=== PATIENT | male | born 1955 | race Caucasian/White ===

== ENCOUNTER → 2019-07-13 07:45 | Outpatient (CLI) | payer OTHER, SELFPAY ==
[2019-07-13 08:42] LABS: Cholesterol 191 mg/dL (140-199); HDL Cholesterol 35 mg/dL (40-60); LDL Cholesterol Calculated 122 mg/dL (<100); Triglycerides 172 mg/dL (35-150)
== END ==
PROVIDERS: Family Provider Family Medicine; PCP Family Medicine; Visit Provider Internal Medicine Cardiovascular Disease
DX: I25.10 Atherosclerotic heart disease of native coronary artery without angina pectoris (principal)
CPT/HCPCS: 36415; 80061

== ENCOUNTER → 2019-08-31 09:34 | Outpatient (CLI) | payer OTHER, SELFPAY ==
[2019-08-31 11:40] LABS: BUN Creatinine Ratio 28.3 (6-22); Blood Urea Nitrogen 17 mg/dL (9-20); Calcium 8.7 mg/dL (8.4-10.2); Carbon Dioxide 26 mmol/L (22-32); Chloride 107 mmol/L (98-107); Cholesterol 126 mg/dL (140-199); Estimated Glomerular Filt Rate > 60.0 mL/min (>60); Glucose 104 mg/dL (80-110); HDL Cholesterol 30 mg/dL (40-60); HEMOLYSIS < 15 (0-50); LDL Cholesterol Calculated 67 mg/dL (<100); Potassium 4.5 mmol/L (3.4-5.1); Sodium 139 mmol/L (137-145); Triglycerides 144 mg/dL (35-150)
== END ==
PROVIDERS: Family Provider Family Medicine; PCP Family Medicine; Referring Provider Internal Medicine Cardiovascular Disease; Visit Provider Internal Medicine Cardiovascular Disease
DX: I25.118 Atherosclerotic heart disease of native coronary artery with other forms of angina pectoris (principal); E78.00 Pure hypercholesterolemia, unspecified
CPT/HCPCS: 36415; 80048; 80061

== ENCOUNTER 2020-02-15 11:44 | Emergency (ER) | payer OTHER, SELFPAY ==
[2020-02-15] VITALS (17 sets, daily range): BP systolic 133–168; BP diastolic 63–110; PULSE 66–137; RESP 18–37; TEMP 36.8; O2SAT 91–99; BMI 34.7
--- NOTE | 2020-02-15 12:01 | DI.RAD.S_ITS ---
PROCEDURE: XR CHEST 2V INDICATIONS: shortness of breath TECHNIQUE: 2 views of the chest were acquired. COMPARISON: None. FINDINGS: Surgical changes and devices: Extensive thoracic spine fixation hardware is seen.. Lungs and pleura: There is pulmonary vascular congestion. Small to moderate right pleural effusion is noted with right lower lung field atelectasis. No gross pneumothorax. Mild pulmonary edema is also seen. No pleural effusions or pneumothorax. Mediastinum: Mediastinal contours are normal. Heart size is enlarged. Bones and chest wall: No suspicious bony abnormalities. Soft tissues appear unremarkable. IMPRESSION: Congestive changes and right pleural effusion. No gross pneumothorax. Dictated by: Benjamin Corbin M.D. on 02/15/2020 at 12:34 Approved by: Benjamin Corbin M.D. on 02/15/2020 at 12:38
--- NOTE | 2020-02-15 12:12 | ED_ITS ---
HPI - SOB/Dyspnea General Chief Complaint: Shortness of Breath/Dyspnea Stated Complaint: very SOB, states HR is elevated Time Seen by Provider: 02/15/20 11:59 Source: patient Mode of arrival: Ambulatory Limitations: no limitations History of Present Illness HPI Narrative: The patient is a 54-year-old male who presents with increasing shortness of breath ongoing for the last 36 hours. He says it started suddenly while he was sleeping it is worse with exertion he denies any chest pain or heart fluttering. Says he was really unable to make it to his mailbox this morning without any discomfort and experiencing shortness of breath. He is also having orthopnea at night. He denies any fever cough he is experiencing some diaphoresis now. He said that he checked his heart rate at home was in the 150s is [facility] come [facility]. Also he is worried about COVID-19 and requesting to be test Related Data Previous Rx's Medication Instructions Recorded azithromycin [Zithromax Z-Lars] 250 mg PO QDAY #6 tab 07/07/16 furosemide [Lasix] 20 mg PO DAILY #3 tab 02/15/20 Allergies Allergy/AdvReac Type Severity Reaction Status Date / Time chlorhexidine [CHLORHEXIDINE] Allergy Severe red whelts Verified 02/15/20 12:15 codeine [CODEINE] Allergy Unknown Verified 02/15/20 12:15 Review of Systems Review of Systems Narrative: GENERAL: Denies chills, fatigue, malaise, fever, sweats, travel HEENT: Denies sinus pain, ear pain, sore throat, difficulty swallowing, neck pain RESPIRATORY: Denies dyspnea, cough, wheezing, hemoptysis, sputum. CARDIOVASCULAR: See HPI GASTROINTESTINAL: Denies nausea, vomiting, abdominal pain, diarrhea, constipation, melena. : Denies dysuria, frequency, incontinence, hematuria, urinary retention, flank pain. MUSCULOSKELETAL: Denies weakness, joint pain, or bony pain SKIN: No rash, no erythema, no pruritus NEUROLOGIC: Denies weakness, dizziness, headache, numbness, change in speech, confusion PSYCHIATRIC: No concerning psychosocial issues. 12 point review of systems is negative except for those stated above and HPI Patient History Medical History Hyperlipidemia (Acute) Hypertension (Acute) Social History Smoking Status: Never smoker Exam Initial Vital Signs Initial Vital Signs: Vital Signs Pulse Rate 135 H 02/15/20 11:57 Respiratory Rate 29 H 02/15/20 11:57 Blood Pressure 168/110 H 02/15/20 11:57 Pulse Oximetry 95 02/15/20 11:57 GENERAL: [Well-appearing, well-nourished] and in [no acute] distress. HEENT: Head atraumatic,EOMI, pupils reactive, face symmetric, [moist] mucous membranes CARDIOVASCULAR: Tachycardic regular no murmur RESPIRATORY: Breath sounds equal bilaterally, no wheezes rales or rhonchi. ABDOMEN: Soft, nontender. Normoactive bowel sounds all 4 quadrants. No guarding or rebound. EXTREMITIES: Normal range of motion, no clubbing or edema. Neurovascularly intact NEUROLOGICAL: Alert and oriented x4.Normal gait and speech. SKIN: Warm, dry, no laceration, no petechiae, no rashes or lesions. Procedures Cardioversion Consent Signed: Yes Indication: Atrial flutter with RVR Stability: Stable Number of attempts (shocks): 1 Joules used: 150 Cardiac rhythm post-cardioversion: Normal sinus rhythm Procedural Sedation Consent signed: Yes Time out performed: Yes Indication: cardioversion ASA Class: III Mallampati Airway Classification: Class II Preparation: monitor and storage bin tender applied, pulse oximeter, capnometry used, supp lemental O2 applied, suction/airway equipment at bedside and IV secured IV Propofol dose (mg): 100 Intraservice time/total sedation time (min): 15 ED Sedation Level: Moderate (Concious) Patient Tolerated Procedure: Well Interventions: Airway repositioned and Oxygen applied Scores CHADS-VASc Congestive heart failure: yes Hypertension: yes Age 75 years or older: no Diabetes mellitus: no Stroke, TIA, or TE: no Vascular disease: no Age 65 to 74 years: no Sex category (female): Male CHADS-VASc Score: 2 Course Orders Ordered: ED Orders 02/15/20 12:01 XR chest 2V Stat EKG-12 Lead Stat Measure peak expiratory flow ONCE RT Consult Eval and Treat Now 02/15/20 12:10 Complete Blood Count AUTO DIFF Stat Comprehensive Metabolic Panel Stat D Dimer Stat Lactate (Lactic Acid) Stat Magnesium Stat NT-proBNP (BNP-Adult 18+) Stat Thyroid Stimulating Hormone Stat Troponin & CK Cardiac Panel Stat 02/15/20 12:50 EKG-12 Lead Routine Discontinued Medications Aspirin (Aspirin Chew) 324 mg PO NOW ONE Stop: 02/15/20 14:08 Last Admin: 02/15/20 14:17 Dose: 324 mg Documented by: TED Diltiazem HCl (Cardizem) 10 mg IV NOW ONE Stop: 02/15/20 12:19 Last Admin: 02/15/20 12:21 Dose: 10 mg Documented by: TED Furosemide (Lasix) 40 mg IV NOW ONE Stop: 02/15/20 13:22 Last Admin: 02/15/20 14:13 Dose: 40 mg Documented by: TED Propofol (Diprivan) 130 mg 1 mg/kg (130 mg) IV NOW ONE Stop: 02/15/20 13:09 Last Admin: 02/15/20 14:12 Dose: 100 mg Documented by: TED Vital Signs Vital signs: Vital Signs - 8 hr 02/15/20 11:57 02/15/20 12:00 02/15/20 12:30 Temperature 98.3 F Pulse Rate 135 H 137 H 134 H Respiratory Rate 29 H 37 H 31 H Blood Pressure 168/110 H 168/110 H Pulse Oximetry 95 95 92 02/15/20 12:34 02/15/20 13:00 02/15/20 13:30 Temperature Pulse Rate 100 H 104 H 128 H Respiratory Rate 24 20 26 H Blood Pressure 147/88 H 161/92 H 150/74 H Pulse Oximetry 93 91 91 02/15/20 13:53 02/15/20 13:58 02/15/20 14:00 Temperature Pulse Rate 130 H 136 H 135 H Respiratory Rate 29 H 20 26 H Blood Pressure 149/89 H Pulse Oximetry 91 02/15/20 14:05 02/15/20 14:10 02/15/20 14:15 Temperature Pulse Rate 67 66 Respiratory Rate 22 24 Blood Pressure 146/72 H 144/88 H 135/80 Pulse Oximetry 97 93 02/15/20 14:21 02/15/20 14:26 02/15/20 14:30 Temperature Pulse Rate 67 68 69 Respiratory Rate 22 32 H Blood Pressure 140/63 133/79 Pulse Oximetry 93 94 94 02/15/20 14:31 02/15/20 14:36 Temperature Pulse Rate 67 67 Respiratory Rate 26 H 18 Blood Pressure 136/64 154/85 H Pulse Oximetry 94 94 MDM - SOB/Dyspnea Lab Data Attestation: I reviewed the patient's lab results. Result diagrams: 02/15/20 12:10 02/15/20 12:10 Labs: Lab Results 02/15/20 02/15/20 02/15/20 Range/Units 12:10 12:10 12:10 WBC 9.4 (4.5-11.0) X10^3/uL RBC 4.35 L (4.5-5.9) X10^6/uL Hgb 14.1 (13.5-17.5) g/dL Hct 42.0 (41-53) % MCV 96.7 (80-100) fL MCH 32.4 (26-34) PG MCHC 33.5 (30-36) % RDW 12.9 (11.6-14.8) % Plt Count 218 (150-400) X10^3/uL Neut % (Auto) 74.6 (50-75) % Lymph % (Auto) 16.3 L (25-40) % [place] % (Auto) 7.7 (3-14) % Eos % (Auto) 0.9 L (2-4) % Baso % (Auto) 0.5 (0-2) % Neut # (Auto) 7000 (2493-1063) /uL Lymph # (Auto) 1500 (5146-9836) /uL [place] # (Auto) 700 (0-900) /uL Eos # (Auto) 100 (0-450) /uL Baso # (Auto) 0 (0-100) /uL D-Dimer (<230) ng/mL Sodium 139 (137-145) mmol/L Potassium 4.5 (3.4-5.1) mmol/L Chloride 107 (98-107) mmol/L Carbon Dioxide 27 (22-32) mmol/L BUN 12 (9-20) mg/dL Creatinine 0.60 L (0.66-1.25) mg/dL Estimated GFR > 60.0 (>60) mL/min BUN/Creatinine Ratio 20.0 (6-22) Glucose 112 H (80-110) mg/dL Lactate 0.6 L (0.7-2.1) mmol/L Calcium 8.7 (8.4-10.2) mg/dL Magnesium (1.6-2.3) mg/dL Total Bilirubin 0.6 (0.2-1.3) mg/dL AST 33 (17-59) IU/L ALT 41 (<50) IU/L Alkaline Phosphatase 68 (38-126) U/L Total Creatine Kinase (55-170) U/L CK-MB (CK-2) CK-MB (CK-2) Rel Index Troponin I (0.01-0.034) ng/mL NT-Pro-B Natriuret Pep (<125) pg/mL Total Protein 6.8 (6.3-8.2) g/dL Albumin 4.0 (3.5-5.0) g/dL Globulin 2.8 (1.7-4.1) g/dL Albumin/Globulin Ratio 1.4 (1.0-2.8) TSH (0.47-4.68) uIU/mL 02/15/20 02/15/20 02/15/20 Range/Units 12:10 12:10 12:10 WBC (4.5-11.0) X10^3/uL RBC (4.5-5.9) X10^6/uL Hgb (13.5-17.5) g/dL Hct (41-53) % MCV (80-100) fL MCH (26-34) PG MCHC (30-36) % RDW (11.6-14.8) % Plt Count (150-400) X10^3/uL Neut % (Auto) (50-75) % Lymph % (Auto) (25-40) % [place] % (Auto) (3-14) % Eos % (Auto) (2-4) % Baso % (Auto) (0-2) % Neut # (Auto) (1743-6390) /uL Lymph # (Auto) (0177-1264) /uL [place] # (Auto) (0-900) /uL Eos # (Auto) (0-450) /uL Baso # (Auto) (0-100) /uL D-Dimer 272 H (<230) ng/mL Sodium (137-145) mmol/L Potassium (3.4-5.1) mmol/L Chloride (98-107) mmol/L Carbon Dioxide (22-32) mmol/L BUN (9-20) mg/dL Creatinine (0.66-1.25) mg/dL Estimated GFR (>60) mL/min BUN/Creatinine Ratio (6-22) Glucose (80-110) mg/dL Lactate (0.7-2.1) mmol/L Calcium (8.4-10.2) mg/dL Magnesium 2.0 (1.6-2.3) mg/dL Total Bilirubin (0.2-1.3) mg/dL AST (17-59) IU/L ALT (<50) IU/L Alkaline Phosphatase (38-126) U/L Total Creatine Kinase 54 L (55-170) U/L CK-MB (CK-2) TNP CK-MB (CK-2) Rel Index TNP Troponin I 0.017 (0.01-0.034) ng/mL NT-Pro-B Natriuret Pep (<125) pg/mL Total Protein (6.3-8.2) g/dL Albumin (3.5-5.0) g/dL Globulin (1.7-4.1) g/dL Albumin/Globulin Ratio (1.0-2.8) TSH (0.47-4.68) uIU/mL 02/15/20 02/15/20 Range/Units 12:10 12:10 WBC (4.5-11.0) X10^3/uL RBC (4.5-5.9) X10^6/uL Hgb (13.5-17.5) g/dL Hct (41-53) % MCV (80-100) fL MCH (26-34) PG MCHC (30-36) % RDW (11.6-14.8) % Plt Count (150-400) X10^3/uL Neut % (Auto) (50-75) % Lymph % (Auto) (25-40) % [place] % (Auto) (3-14) % Eos % (Auto) (2-4) % Baso % (Auto) (0-2) % Neut # (Auto) (2693-5395) /uL Lymph # (Auto) (1621-1825) /uL [place] # (Auto) (0-900) /uL Eos # (Auto) (0-450) /uL Baso # (Auto) (0-100) /uL D-Dimer (<230) ng/mL Sodium (137-145) mmol/L Potassium (3.4-5.1) mmol/L Chloride (98-107) mmol/L Carbon Dioxide (22-32) mmol/L BUN (9-20) mg/dL Creatinine (0.66-1.25) mg/dL Estimated GFR (>60) mL/min BUN/Creatinine Ratio (6-22) Glucose (80-110) mg/dL Lactate (0.7-2.1) mmol/L Calcium (8.4-10.2) mg/dL Magnesium (1.6-2.3) mg/dL Total Bilirubin (0.2-1.3) mg/dL AST (17-59) IU/L ALT (<50) IU/L Alkaline Phosphatase (38-126) U/L Total Creatine Kinase (55-170) U/L CK-MB (CK-2) CK-MB (CK-2) Rel Index Troponin I (0.01-0.034) ng/mL NT-Pro-B Natriuret Pep 1590 H (<125) pg/mL Total Protein (6.3-8.2) g/dL Albumin (3.5-5.0) g/dL Globulin (1.7-4.1) g/dL Albumin/Globulin Ratio (1.0-2.8) TSH 1.84 (0.47-4.68) uIU/mL Imaging Data Chest x-ray: Radiologist's Impression: PROCEDURE: XR CHEST 2V INDICATIONS: shortness of breath TECHNIQUE: 2 views of the chest were acquired. COMPARISON: None. FINDINGS: Surgical changes and devices: Extensive thoracic spine fixation hardware is seen.. Lungs and pleura: There is pulmonary vascular congestion. Small to moderate right pleural effusion is noted with right lower lung field atelectasis. No gross pneumothorax. Mild pulmonary edema is also seen. No pleural effusions or pneumothorax. Mediastinum: Mediastinal contours are normal. Heart size is enlarged. Bones and chest wall: No suspicious bony abnormalities. Soft tissues appear unremarkable. IMPRESSION: Congestive changes and right pleural effusion. No gross pneumothorax. Dictated by: Benjamin Corbin M.D. on 02/15/2020 at 12:34 ECG Data Attestation: I personally reviewed and interpreted this ECG as follows: Interpretation: EKG 1. Atrial flutter rate 136 EKG 2. Atrial flutter [address] changes EKG 3. Sinus rhythm rate 66 p.r. interval 176 QRS [address] changes no priors to compare MDM Narrative Medical decision making narrative: The patient is quite certain that this started 36 hours ago because he woke up suddenly with shortness of breath. He has an elevated BNP and a new diagnosis of atrial flutter. I have discussed risks and benefits with him pending regards to cardioversion. The patient is easily cardioverted after 1 shock is in normal sinus rhythm. He states he is feeling overall much better. He is actually followed by Dr. Scherer, cardiology. He is given an aspirin in has a low risk chest score I strongly encouraged him and recommend he talk with Cardiology for outpatient echocardiogram. At this time he is not hypoxic and no need for admission. Discharge Plan Departure Patient Disposition: Home Clinical Impression: Atrial flutter with rapid ventricular response Congestive heart failure Qualifiers: Heart failure type: unspecified Heart failure chronicity: unspecified Qualified Code(s): I50.9 - Heart failure, unspecified Discharge Date/Time: 02/15/20 15:17 Instructions: Heart Failure, Atrial Flutter Activity Restrictions/Additional Instructions: *You have been diagnosed with atrial flutter *What to do: It is imperative that you have further testing including echocardiogram be evaluated by a rn hyperbaric. This can put you at risk for stroke so be sure that he take an aspirin once a day you may require stronger anticoagulation *Continue to take medications as directed Lasix 20 mg once a day for 3 days Continue metoprolol and aspirin and other medications as previously indicated *Follow up with your primary care provider in 2-3 days, call cardiology today to schedule follow-up appointment for the further testing you require *Return to ER if you should have increasing shortness of breath, chest pain heart palpitation or any new, worsening or concerning symptoms Prescriptions: New furosemide [Lasix] 20 mg tablet 20 mg PO DAILY Qty: 3 RF: 0 No Action azithromycin [Zithromax Z-Lars] 250 MG tablet 250 mg PO QDAY Qty: 6 RF: 0 Referrals: Kvng Sibley MD [Primary Care Provider] - Franky Galvez MD [Physician] -
[2020-02-15 12:21] LABS: Add Manual Diff / Slide Review NO; Basophils Absolute Auto 0 /uL (0-100); Basophils Percent Auto 0.5 % (0-2); Eosinophils Absolute Auto 100 /uL (0-450); Eosinophils Percent Auto 0.9 % (2-4); Hemoglobin 14.1 g/dL (13.5-17.5); Lymphocytes Absolute Auto 1500 /uL (1100-4500); Lymphocytes Percent Auto 16.3 % (25-40); Mean Corpuscular HGB Conc 33.5 % (30-36); Mean Corpuscular Hemoglobin 32.4 PG (26-34); Mean Corpuscular Volume 96.7 fL (80-100); Monocytes Absolute Auto 700 /uL (0-900); Monocytes Percent Auto 7.7 % (3-14); Neutrophils Absolute Auto 7000 /uL (1500-7000); Neutrophils Percent Auto 74.6 % (50-75); Platelet Count 218 X10^3/uL (150-400); Red Blood Cell Count 4.35 X10^6/uL (4.5-5.9); Red Cell Distribution Width 12.9 % (11.6-14.8); White Blood Cell Count 9.4 X10^3/uL (4.5-11.0)
[2020-02-15] MEDS: dilTIAZem 5 MG/ML SDV 10 MG IV (12:21)
[2020-02-15 12:35] LABS: Creatine Kinase 54 U/L (55-170)
[2020-02-15 12:36] LABS: Alanine Aminotransferase 41 IU/L (<50); Albumin Globulin Ratio 1.4 (1.0-2.8); Alkaline Phosphatase 68 U/L (38-126); Aspartate Aminotransferase 33 IU/L (17-59); Bilirubin Total 0.6 mg/dL (0.2-1.3); Blood Urea Nitrogen 12 mg/dL (9-20); Calcium 8.7 mg/dL (8.4-10.2); Carbon Dioxide 27 mmol/L (22-32); Chloride 107 mmol/L (98-107); Estimated Glomerular Filt Rate > 60.0 mL/min (>60); Globulin 2.8 g/dL (1.7-4.1); Glucose 112 mg/dL (80-110); HEMOLYSIS < 15 (0-50); Lactate (Lactic Acid) 0.6 mmol/L (0.7-2.1); Potassium 4.5 mmol/L (3.4-5.1); Sodium 139 mmol/L (137-145); Total Protein 6.8 g/dL (6.3-8.2)
[2020-02-15 12:40] LABS: D Dimer 272 ng/mL (<230)
[2020-02-15 12:47] LABS: Troponin I 0.017 ng/mL (0.01-0.034)
[2020-02-15 13:16] LABS: NT-proBNP (BNP-Adult 18+) 1590 pg/mL (<125)
[2020-02-15 13:42] LABS: Thyroid Stimulating Hormone 1.84 uIU/mL (0.47-4.68)
[2020-02-15] MEDS: propofoL 200 MG/20 ML VIAL 130 MG IV (14:12)
[2020-02-15] MEDS: FUROSEMIDE 40 MG/4 ML VIAL IV (14:13)
[2020-02-15] MEDS: ASPIRIN 81 MG CHEW TAB 324 MG PO (14:17)
--- NOTE | 2020-02-15 15:10 | RT ---
At bedside for PRS for Cardioversion. Bag Mask Unit at [facility] with suction/ on and functional. Etco2 on, pt placed on o2 @3lpm nc. Post procedure jaw thrust applied for approx 2 min, pt arousable and on 2lpm nc. No distress noted and pt alert and talking.
[2020-02-18 21:20] LABS: COVID19 Sendout Not Detected
== END 2020-02-15 15:17 | disposition home or self-care (01) ==
PROVIDERS: Emergency Provider Emergency Medicine; Family Provider Family Medicine; PCP Family Medicine
DX: I48.92 Unspecified atrial flutter (principal); I11.0 Hypertensive heart disease with heart failure; I50.9 Heart failure, unspecified; R00.0 Tachycardia, unspecified; E78.5 Hyperlipidemia, unspecified
CPT/HCPCS: 36415; 71046; 80053; 82550; 83605; 83735; 83880; 84443; 84484; 85025; 85379; 87635; 92960; 93005; 93010; 94770; 96374; 96375; 99152; 99285; J1940; J2704

== ENCOUNTER → 2020-02-20 07:22 | Outpatient (CLI) | payer OTHER, SELFPAY ==
[2020-02-20 08:52] LABS: BUN Creatinine Ratio 26.3 (6-22); Blood Urea Nitrogen 15 mg/dL (9-20); Calcium 8.8 mg/dL (8.4-10.2); Carbon Dioxide 28 mmol/L (22-32); Chloride 106 mmol/L (98-107); Cholesterol 103 mg/dL (140-199); Estimated Glomerular Filt Rate > 60.0 mL/min (>60); Glucose 99 mg/dL (80-110); HDL Cholesterol 34 mg/dL (40-60); HEMOLYSIS < 15 (0-50); LDL Cholesterol Calculated 56 mg/dL (<100); Potassium 4.4 mmol/L (3.4-5.1); Sodium 140 mmol/L (137-145); Triglycerides 64 mg/dL (35-150)
== END ==
PROVIDERS: Family Provider Family Medicine; PCP Family Medicine; Referring Provider Internal Medicine Cardiovascular Disease; Visit Provider Internal Medicine Cardiovascular Disease
DX: E78.00 Pure hypercholesterolemia, unspecified (principal); I42.8 Other cardiomyopathies
CPT/HCPCS: 36415; 80048; 80061

== ENCOUNTER → 2021-05-29 12:45 | Outpatient (CLI) | payer OTHER, SELFPAY ==
[2021-05-29 14:02] LABS: Alanine Aminotransferase 32 IU/L (<50); Albumin 3.8 g/dL (3.5-5.0); Albumin Globulin Ratio 1.5 (1.0-2.8); Alkaline Phosphatase 60 U/L (38-126); Aspartate Aminotransferase 28 IU/L (17-59); BUN Creatinine Ratio 28.6 (6-22); Bilirubin Total 0.4 mg/dL (0.2-1.3); Blood Urea Nitrogen 16 mg/dL (9-20); Calcium 8.6 mg/dL (8.4-10.2); Carbon Dioxide 30 mmol/L (22-32); Chloride 104 mmol/L (98-107); Estimated Glomerular Filt Rate > 60.0 mL/min (>60); Globulin 2.5 g/dL (1.7-4.1); Glucose 111 mg/dL (80-110); HEMOLYSIS 23 (0-50); Potassium 4.5 mmol/L (3.4-5.1); Sodium 140 mmol/L (137-145); Total Protein 6.3 g/dL (6.3-8.2)
[2021-05-29 14:18] LABS: Free T4, Direct Thyroxine 0.99 ng/dL (0.78-2.19)
[2021-05-29 14:32] LABS: Thyroid Stimulating Hormone 1.27 uIU/mL (0.47-4.68)
== END ==
PROVIDERS: Family Provider Family Medicine; PCP Family Medicine; Referring Provider Internal Medicine; Visit Provider Internal Medicine
DX: R00.2 Palpitations (principal)
CPT/HCPCS: 36415; 80053; 84439; 84443

== ENCOUNTER → 2021-06-08 13:38 | Outpatient (CLI) | payer OTHER, SELFPAY ==
--- NOTE | 2021-06-08 | DI.MRI.S_ITS ---
PROCEDURE: MR CERVICAL SPINE WO CON INDICATIONS: Radiculopathy, cervical region TECHNIQUE: Noncontrast sagittal T1 spin echo and T2 fast spin echo, sagittal STIR, foraminal oblique sagittal T2 fast spin echo, and axial gradient echo or T2 fast spin echo through the cervical spine. COMPARISON: [facility], MR, C-SPINE WITHOUT CONTRAST, 02/16/2013, 8:30. FINDINGS: Image quality: Excellent. Alignment and Curvature: Mild straightening the normal cervical lordosis noted. Bone Marrow: Marrow demonstrates normal overall signal. Spinal Cord: Visualized spinal cord has normal size and signal. No cerebellar tonsillar herniation. Paraspinous Soft Tissues: No paravertebral masses. Prevertebral soft tissues are normal in thickness. C2-C3: Disc space is maintained. Hypertrophic uncovertebral joint results in mild right foraminal stenosis. No central stenosis. C3-C4: Disc space is maintained. Posterior disc osteophyte complex results in mild central stenosis. Moderate left and no right foraminal stenosis present. C4-C5: Disc space is maintained. Posterior disc osteophyte complex results in mild flattening the ventral surface of the cord. Hypertrophic uncovertebral joints present with mild bilateral foraminal stenosis. C5-C6: Moderate disc space narrowing and posterior disc osteophyte complex resulting in flattening the ventral surface of the cord moderate central stenosis. Moderate bilateral foraminal stenosis noted. C6-C7: Moderate disc space narrowing posterior disc osteophyte complex results in mild central stenosis without cord deformation. Moderate bilateral foraminal stenosis noted. C7-T1: Mild disc space narrowing present without central stenosis. Moderate left and no right foraminal stenosis. IMPRESSION: Multilevel degenerative disc disease and arthropathy results in varying degrees central and foraminal stenosis, increased from the prior. Dictated by: Corey Castro M.D. on 06/08/2021 at 17:43 Approved by: Corey Castro M.D. on 06/08/2021 at 17:48
== END ==
PROVIDERS: Family Provider Family Medicine; PCP Nurse Practitioner Acute Care; Referring Provider Physical Medicine & Rehabilitation Pain Medicine; Visit Provider Physical Medicine & Rehabilitation Pain Medicine
DX: M50.121 Cervical disc disorder at C4-C5 level with radiculopathy (principal); M47.22 Other spondylosis with radiculopathy, cervical region; M48.02 Spinal stenosis, cervical region
CPT/HCPCS: 72141

== ENCOUNTER → 2022-07-02 10:20 | Outpatient (CLI) | payer OTHER, SELFPAY ==
[2022-07-02 11:48] LABS: BUN Creatinine Ratio 27.5 (6-22); Blood Urea Nitrogen 14 mg/dL (9-20); Calcium 8.5 mg/dL (8.4-10.2); Carbon Dioxide 33 mmol/L (22-32); Chloride 97 mmol/L (98-107); Estimated Glomerular Filt Rate > 60 mL/min (>60); Glucose 82 mg/dL (80-110); HEMOLYSIS 39 (0-50); Potassium 4.9 mmol/L (3.4-5.1); Sodium 141 mmol/L (137-145)
[2022-07-02 12:19] LABS: Free T4, Direct Thyroxine 1.28 ng/dL (0.78-2.19)
[2022-07-02 12:33] LABS: Thyroid Stimulating Hormone 1.04 uIU/mL (0.47-4.68)
== END ==
PROVIDERS: Family Provider Family Medicine; PCP Nurse Practitioner Acute Care; Referring Provider Internal Medicine; Visit Provider Internal Medicine
DX: R60.1 Generalized edema (principal)
CPT/HCPCS: 36415; 80048; 84439; 84443